=== PATIENT | male | born 2000 | race African-American/Black ===

== ENCOUNTER 2024-03-10 12:43 | Emergency (ER) | payer MEDICAID ==
[~2024-03-10] VITALS: Ht 170.2 cm; Wt 82.0 kg
[~2024-03-10 12:43] MED LIST: ALBU18HF2 IH
[2024-03-10 13:26] VITALS: BP 123/76; PULSE 88; RESP 16; TEMP 98.2; O2SAT 100
[2024-03-10 17:00] LABS: CLARITY URINE CLEAR (CLEAR); COLOR URINE YELLOW (YELLOW); GLUCOSE URINE NEGATIVE (NEGATIVE); KETONES URINE NEGATIVE (NEGATIVE); LEUKOCYTE ESTERASE URINE NEGATIVE (NEGATIVE); NITRITE URINE NEGATIVE (NEGATIVE); OCCULT BLOOD URINE NEGATIVE (NEGATIVE); PROTEIN URINE NEGATIVE (NEGATIVE); SPECIFIC GRAVITY URINE 1.011 (1.005-1.030); UROBILINOGEN URINE 0.2 E.U./dL (0.2-1.0)
[2024-03-13 06:11] LABS: CHLAMYDIA TRACHOMATIS NAA Negative (Negative); NEISSERIA GONORRHOEAE NAA Negative (Negative)
== END 2024-03-10 16:47 | disposition home or self-care (01) ==
LOC: ER 12:43
DX: L72.8 Other follicular cysts of the skin and subcutaneous tissue (principal)
CPT/HCPCS: 76870; 81003; 87491; 87591; 93976; 99284

== ENCOUNTER 2025-06-27 17:13 | Emergency (ER) | payer MEDICAID ==
[~2025-06-27] VITALS: Ht 167.6 cm; Wt 84.0 kg
[2025-06-27 17:29] VITALS: O2SAT 97
[2025-06-27] MEDS ORDERED: LIDOCAINE HCL 1% 20ML VIAL INL ONE (19:15)
[2025-06-27] MEDS: IBUPROFEN 400MG TABLET PO ONE (19:37)
[2025-06-27] MEDS ORDERED: BO1 TP (21:06)
[2025-06-27 21:23] VITALS: BP 135/83; PULSE 65; RESP 18; TEMP 36.8; O2SAT 98
== END 2025-06-27 21:29 | disposition home or self-care (01) ==
LOC: ER 17:13
DX: S61.312A Laceration without foreign body of right middle finger with damage to nail, initial encounter (principal); X58.XXXA Exposure to other specified factors, initial encounter; Y93.89 Activity, other specified; Y92.89 Other specified places as the place of occurrence of the external cause; Y99.8 Other external cause status
CPT/HCPCS: 73120; 12001; 99283; J2003; Z7610